=== PATIENT | male | born 1960 | race Caucasian/White ===

== ENCOUNTER → 2017-03-22 | Outpatient (CLI) | payer BC | LOC: M.RAD 09:39 | DX: R05 Cough (principal); R09.89 Other specified symptoms and signs involving the circulatory and respiratory systems ==

== ENCOUNTER → 2018-07-06 | Outpatient (CLI) | payer BC ==
--- NOTE | 2018-07-06 17:28 | EXE ---
[place] [address] STRESS ECHOCARDIOGRAM Name: MICHAEL COUGHLIN Room: [facility]#: [id number] Admission: 07/06/18 Attend Phys: Elizabeth Madden, Discharge: Date of : 62 Date of Service: 07/06/18 1727 Report #: [id number] THIS REPORT FOR: //name// APPROVED REPORT Study performed: 07/06/2018 15:09:11 Exam: Stress Echocardiogram Indication: Chest pain , Dyspnea Patient Location: Out-Patient Stress Nurse: Pooja Livingston RN Supervising Physician: Lucius Barron MD Ht: 5 ft 5 in HR: 78 bpm BP: 146/88 mmHg Medical History Cardiac Risk Factors: HTN, DM, Tobacco History (Current/Recent), FHX of CAD Procedure The patient underwent an Exercise Stress Test using the Timmy Protocol. Blood pressure, heart rate, and EKG were monitored. An Echocardiogram was performed by parts identification technician in four stages in quad fashion. At peak stress, four selected images were obtained and placed side by side with resting images for comparison. Stress Test Details Stress Test: Exercise stress testing was performed using a Timmy protocol. HR Resting HR: 78 bpm Max Heart Rate (APMHR): 164 bpm Max HR Achieved: 174 bpm Target HR (85% APMHR): 139 bpm % of APMHR: 106 Recovery HR: 105 bpm HR response to stress: Normal HR response to stress BP Resting BP: 146/88 mmHg Max BP: 262/84 mmHg Recovery BP: 120/70 mmHg BP response to stress: Abnormal hypertensive response to stress. ECG Resting ECG: [place] [address] STRESS ECHOCARDIOGRAM Name: MADYSONMICHAEL G Room: [facility]#: [id number] Admission: 07/06/18 Attend Phys: Elizabeth Madden, Discharge: Date of : 62 Date of Service: 07/06/18 1727 Report #: [id number] Stress ECG: Sinus Tachycardia ST Change: None Arrhythmia: None Recovery ECG: Sinus Rhythm Recovery ST Change: None Recovery Arrhythmia: None Clinical Reason for Termination: Elevated Blood Pressure Exercise duration: 5 min 14 sec Highest Stage Achieved: Stage 2: 2.5 mph at 12% grade. Exercise capacity: 7.05 METs The patient had no significant symptoms with standard Timmy protocol exercise. Exercise was discontinued due to hypertensive response to exercise. The patient did not have any significant shortness of breath or chest pain. Stress ECG Conclusion The baseline 12-lead EKG shows sinus rhythm with no significant ST or T wave abnormalities. EKGs obtained during and post exercise stress show sinus rhythm and sinus tachycardia with no significant ST or T wave changes when compared to baseline. There were no stress-induced arrhythmias. Pre-Stress Echo The resting Echocardiogram showed normal left ventricular contractility with an estimated Ejection Fraction of about 55-60%. Post-Stress Echo The stress Echocardiogram showed normal left ventricular contractility with an estimated Ejection Fraction of about >70%. Conclusion Clinical Response: Non-ischemic Stress ECG Response: Non-ischemic Stress Echo Images: Non-ischemic The patient exhibited a hypertensive response to exercise. Other Information Study Quality: [place] [address] STRESS ECHOCARDIOGRAM Name: MICHAEL COUGHLIN Room: [facility]#: [id number] Admission: 07/06/18 Attend Phys: Elizabeth Madden, Discharge: Date of : 62 Date of Service: 07/06/181726 Report #: [id number] <Conclusion> The patient exhibited a hypertensive response to exercise. <ELECTRONICALLY SIGNED> By: Mickey Rucker MD, FACC 07/06/181726 26 26 Mickey Rucker MD, FACC /INF
== END ==
LOC: M.CRD 14:41
DX: R07.9 Chest pain, unspecified (principal); R06.02 Shortness of breath; K59.00 Constipation, unspecified; E66.9 Obesity, unspecified; I10 Essential (primary) hypertension; E11.9 Type 2 diabetes mellitus without complications; F17.200 Nicotine dependence, unspecified, uncomplicated; Z82.49 Family history of ischemic heart disease and other diseases of the circulatory system

== ENCOUNTER → 2021-03-20 | Outpatient (CLI) | payer BC ==
[~2021-03-20] MED LIST: ALPRAZOLAM 0.0.25 M1 PO; ASA81BEC PO; IBUPROFEN200 MG PO; LISINOPRIL10 MG PO; METFORMIN HCL1000 MG PO; MULTIVITAMIN1 EACH PO; PRAZOSIN HCL2 MG PO; SERTRALINE HCL100 MG PO; TURMERIC500 M2 PO; VITAMIN C500 M2 PO; ZINC SULFATE220 MG PO
== END ==
LOC: M.ULTRA 10:30
PROVIDERS: ATTEND Internal Medicine
DX: K76.0 Fatty (change of) liver, not elsewhere classified (principal); Z90.49 Acquired absence of other specified parts of digestive tract